=== PATIENT | male | born 1995 | race Caucasian/White ===

== ENCOUNTER 2020-10-21 17:02 | Emergency (ER) | payer OTHER ==
[~2020-10-21 17:02] MED LIST: BACITRACIN ZIN1 EAC1 TP; BACTRIM DS TAB1 EACH PO; CIPRO500 MG PO; FLAGYL500 MG PO; ZOFRAN4 MG PO
[2020-10-21] MEDS ORDERED: DELSYM30 MG/5 ML PO (19:52)
[2020-10-21] MEDS ORDERED: TYLENOL325 MG PO (19:56)
== END 2020-10-21 20:00 | disposition home or self-care (01) ==
LOC: ER1 17:02
DX: R05 Cough (principal); R50.9 Fever, unspecified; Z20.822 Contact with and (suspected) exposure to COVID-19; Z90.89 Acquired absence of other organs
CPT/HCPCS: 99283; U0002

== ENCOUNTER 2021-01-05 18:37 | Emergency (ER) | payer OTHER ==
[~2021-01-05 18:37] MED LIST changes: +DELSYM30 MG/5 ML PO; +TYLENOL325 MG PO
[2021-01-06] MEDS ORDERED: AUGMENTIN 875-1 EACH PO (04:30)
== END 2021-01-05 21:00 | disposition left against medical advice (07) ==
LOC: ER1 18:37
DX: S05.12XA Contusion of eyeball and orbital tissues, left eye, initial encounter (principal); R31.9 Hematuria, unspecified; F17.200 Nicotine dependence, unspecified, uncomplicated; X58.XXXA Exposure to other specified factors, initial encounter
CPT/HCPCS: 99283

== ENCOUNTER 2021-01-06 02:55 | Emergency (ER) | payer OTHER ==
[2021-01-06] MEDS ORDERED: AUGMENTIN 875-1 EACH PO (04:30)
[2021-01-07 22:09] LABS: CHLAMYDIA TRACHOMATIS, NAA Negative (Negative); NEISSERIA GONORRHOEAE, NAA Negative (Negative)
== END 2021-01-06 04:50 | disposition home or self-care (01) ==
LOC: ER1 02:55
PROVIDERS: Physician Assistant
DX: K02.9 Dental caries, unspecified (principal); K05.10 Chronic gingivitis, plaque induced; R31.9 Hematuria, unspecified; H11.32 Conjunctival hemorrhage, left eye; F17.200 Nicotine dependence, unspecified, uncomplicated; Z90.89 Acquired absence of other organs
CPT/HCPCS: 81001; 87086; 99283

== ENCOUNTER 2021-01-21 20:39 | Emergency (ER) | payer OTHER ==
[~2021-01-21 20:39] MED LIST changes: +AUGMENTIN 875-1 EACH PO
[2021-01-21] MEDS ORDERED: CLINDAMYCIN HC150 MG PO (21:14)
== END 2021-01-21 21:30 | disposition home or self-care (01) ==
LOC: ER1 20:39
DX: K02.9 Dental caries, unspecified (principal); F17.200 Nicotine dependence, unspecified, uncomplicated
CPT/HCPCS: 99283